=== PATIENT | female | born 1960 | race Caucasian/White ===

== ENCOUNTER → 2017-05-30 | Outpatient (CLI) | payer BC ==
[~2017-05-30] MED LIST: CHOL10005 PO; FLUT16SP19 NS; GARL10005 PO; LEVO100T95 PO; LOR5 PO; LOR5/325 PO; MAGN500C10 PO; MULT1CAP59 PO; OMEG100032 PO; SYNTHROID PO; VITA-175 PO
--- NOTE | 2017-05-30 15:13 | RADIOLOGY IMAGING REPORT ---
FACILITY: [facility] - [place] PATIENT NAME: Nilam Aguirre : 1960 MR: [id number] V: [id number] EXAM DATE: ORDERING PHYSICIAN: BILL WRIGHT TECHNOLOGIST: Location: [facility] - [place] Patient: Nilam Aguirre : 1960 Visit/Account:[id number] Date of Sevice: 05/30/2017 CHEST W/O CONTRAST History: Uterine cancer follow-up TECHNIQUE: Contiguous axial images were performed through the chest to the level of the adrenal gla nds. No IV contrast was administered. Coronal and sagittal reformatting was also performed. COMPARISON STUDIES: March 03, 2017. Lungs / Pleura: 1 cm noncalcified pulmonary nodule superior anterior right lower lobe on image 42 o f series 3 remains stable. 3 mm noncalcified subpleural nodule lateral aspect right middle lobe on image 60 also remained stable Previous 6 mm groundglass nodule inferior right middle lobe appears smaller now measuring 5 mm best s een on image 62 Previously noted 1.1 cm hypoattenuating nodule just inferior to the inferior right pulmonary vein is again seen and appears stable. Mediastinum/nodes: As above Heart and vessels: negative. Musculoskeletal / Body wall: 7 mm nodule lateral aspect of the upper right breast appear stable. P robable hemangioma in the T9 vertebral body appears stable Upper abdomen: Visualized abdominal viscera negative. IMPRESSION: Two of the three right-sided pulmonary nodules have remained stable. The 6 mm right middle lobe grou ndglass nodule slightly decreased in size now measuring 5 mm. 1.1 cm hypoattenuating nodule just inferior to the inferior right renal vein also appears stable alth ough is not ideally evaluated due to lack of intravenous contrast Report Dictated By: Richelle Mahmood MD at 05/30/2017 3:03 PM Report E-Signed By: Richelle Mahmood MD at 05/30/2017 3:10 PM WSN:[email or web address]
== END ==
LOC: CT 13:55
PROVIDERS: ATTEND Radiology Radiation Oncology
DX: N63.21 Unspecified lump in the left breast, upper outer quadrant (principal); R91.8 Other nonspecific abnormal finding of lung field
CPT/HCPCS: 71250

== ENCOUNTER → 2017-06-01 | Outpatient (CLI) | payer BC ==
--- NOTE | 2017-06-01 10:15 | RADIOLOGY IMAGING REPORT ---
FACILITY: [facility] - [place] PATIENT NAME: Nilam Aguirre : 1960 MR: [id number] V: [id number] EXAM DATE: ORDERING PHYSICIAN: BILL WRIGHT TECHNOLOGIST: Location: [facility] - [place] Patient: Nilam Aguirre : 1960 Visit/Account:[id number] Date of Sevice: 06/01/2017 ABDOMEN/PELVIS W/O CONTRAST HISTORY: Endometrial cancer TECHNIQUE: Axial images acquired through the abdomen/pelvis. Coronal and sagittal reformatting also performed. No IV contrast administered. Dose Lowering Technique One of the following dose optimization techniques was utilized in the performance of this exam: Autom ated exposure control; adjustment of the mA and/or kV according to the patient's size; or use of an i terative reconstruction technique. Specific details can be referenced in the facility's radiology C T exam operational policy. COMPARISON: March 02, 2017 FINDINGS: Visualized lung bases: The 3 mm subpleural nodule lateral aspect right middle lobe appears unchanged and is best seen on image five of series 5. The 6 mm groundglass nodule lateral inferior aspect right middle lobe also unchanged best seen on awilda ge 11. The previously noted 1.1 cm hypoattenuating nodule projecting just inferior to the right inferior pul monary vein is not completely imaged on this study. Hepatobiliary: Negative. Spleen: Negative. Adrenals: Negative. Pancreas: Negative. Kidneys ureters and bladder: Negative. Genitalia: Hysterectomy GI: There is colonic diverticulosis although no CT evidence of acute diverticulitis Vessels/spaces/nodes: Mild vascular calcifications. No pathologic-appearing adenopathy is identifie d Bones/soft tissues: No aggressive appearing bone lesions are seen Additional findings: None pertinent. IMPRESSION: The previously noted 3 mm nodule on the right middle lobe and 6 mm groundglass nodule also in the rig ht middle lobe have remained stable. The previously noted 1.1 cm nodule just inferior to the inferior right renal vein is not completely i sanjeev on this study Postsurgical changes from hysterectomy Colonic diverticulosis although no CT evidence of acute diverticulitis Report Dictated By: Richelle Mahmood MD at 06/01/2017 9:55 AM Report E-Signed By: Richelle Mahmood MD at 06/01/2017 10:10 AM WSN:[email or web address]
== END ==
LOC: CT 08:04
PROVIDERS: ATTEND Radiology Radiation Oncology
DX: Z90.79 Acquired absence of other genital organ(s) (principal); K57.30 Diverticulosis of large intestine without perforation or abscess without bleeding; R91.8 Other nonspecific abnormal finding of lung field
CPT/HCPCS: 74176

== ENCOUNTER 2017-06-20 15:16 | Outpatient (RCR) | payer BC ==
[2017-06-21] MEDS ORDERED: IBUP-56 PO (09:07)
[2017-06-21] MEDS ORDERED: LORA10CA3 PO (09:07)
== END 2017-06-23 14:14 | disposition home or self-care (01) ==
LOC: RAON 15:16
PROVIDERS: ATTEND Radiology Radiation Oncology
DX: Z85.42 Personal history of malignant neoplasm of other parts of uterus (principal); E03.9 Hypothyroidism, unspecified; Z79.899 Other long term (current) drug therapy; Z92.3 Personal history of irradiation
CPT/HCPCS: 99213

== ENCOUNTER 2018-01-17 14:59 | Outpatient (RCR) | payer BC ==
[2018-01-15 15:39] VITALS: BP 150/85
--- NOTE | 2018-01-15 17:27 | RADIOLOGY IMAGING REPORT ---
FACILITY: [facility] - [place] PATIENT NAME: Nilam Aguirre : 1960 MR: [id number] V: [id number] EXAM DATE: ORDERING PHYSICIAN: MARTIN TALAVERA TECHNOLOGIST: Location: [facility] Patient: Nilam Aguirre : 1960 Visit/Account:[id number] Date of Sevice: 01/15/2018 CHEST/AB/PELV W/OUT CONTRAST HISTORY: Endometrial cancer ADDITIONAL HISTORY: None. TECHNIQUE: Contiguous axial images acquired through the chest abdomen and pelvis without IV contrast. Coronal and sagittal reformatting was also performed.Dose Lowering Technique One of the following dose optimization techniques was utilized in the performance of this exam: Autom ated exposure control; adjustment of the mA and/or kV according to the patient's size; or use of an i terative reconstruction technique. Specific details can be referenced in the facility's radiology C T exam operational policy. COMPARISON: CT chest May 30, [address] abdomen pelvis June 01, 2017 FINDINGS: CHEST: Lungs/Pleura: 1 cm noncalcified nodule anterior aspect superior segment of the right lower lobe best seen on image 37 of series 5 remains stable 3 mm noncalcified subpleural nodule lateral aspect right middle lobe has remained stable best seen on image 201 The 5 mm groundglass nodule lateral aspect right middle lobe also remains stable best seen on image 2 09 Previously noted 1.1 cm hypoattenuating nodule just inferior to the inferior right pulmonary vein at is not well seen Mediastinum/lymph nodes: Negative. Heart/vessels: Negative. Bones/soft tissues: Probable benign hemangiomas at T4 and T9 are again seen. There is mild loss of h eight along the superior endplate of T4 that appears stable and is likely related to the Schmorl's no de ABDOMEN AND PELVIS: Hepatobiliary: Negative Spleen: Negative. Pancreas: Negative. Adrenals: Negative. Kidneys ureters and bladder : Negative. Genitalia: Hysterectomy. There is mild soft tissue fullness left-sided the pelvic cul-de-sac appeari ng similar to prior studies likely postsurgical in nature GI: There is diffuse colonic diverticulosis although no CT evidence of acute diverticulitis Vessels/spaces/nodes: Negative. Bones/soft tissues: Tiny umbilical hernia containing fat. No aggressive appearing bone lesions are seen Additional findings: None pertinent. IMPRESSION: Previously noted pulmonary nodules measuring up to 1 cm have remained stable. The 1.1 cm hypoattenua ting nodule just inferior to the inferior right pulmonary vein is not well seen Postsurgical changes from hysterectomy Diffuse colonic diverticulosis although no CT evidence of acute diverticulitis Report Dictated By: Richelle Mahmood MD at 01/15/2018 5:06 PM Report E-Signed By: Richelle Mahmood MD at 01/15/2018 5:23 PM WSN:[email or web address]
[2018-01-17 14:58] VITALS: BP 129/83
[~2018-01-17 14:59] MED LIST changes: +IBUP-56 PO; +LORA10CA3 PO
[2018-01-17] MEDS ORDERED: LEVO137T23 PO (15:01)
--- NOTE | 2018-01-19 01:05 | ONCOLOGY FOLLOW UP NOTE ---
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 She completed adjuvant brachytherapy in October 2016. She presents today and is doing well. She has noted some "charley horses," and we discussed the importance of adequate hydration. She has only been using her vaginal dilators once a week, but is not sexually active at this time. She had a RPG PROGRAMMER ANALYST exam per Dr. Pascal in August 2017 and will follow up with Dr. Pascal again in August 2018. She denies any changes in her bowels or bladder. PAST MEDICAL HISTORY 1. FIGO 1A carcinosarcoma of the uterus, August 2016. 2. Hypothyroidism. PAST SURGICAL HISTORY 1. Da Willie robotic total laparoscopic hysterectomy with bilateral salpingo- oophorectomy and pelvic lymph node dissection, August 2016. 2. , May 1980 3. Shoulder surgery, November 1997. 4. Hamstring repair, November 2013. SOCIAL HISTORY Patient is . She has one daughter. 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 She is a nonsmoker. LABORATORY STUDIES CA125 was 13. REVIEW OF SYSTEMS A 12-point review of systems was performed and is negative except as stated above. PHYSICAL EXAMINATION VITAL SIGNS: Blood pressure 129/83, pulse 68, R 16, temp 97.2, O2 saturation 94%. GENERAL: Patient is a well-developed, well-nourished female in no acute distress. HEAD: Normocephalic, atraumatic. EYES: Sclerae anicteric. MOUTH: Moist mucous membranes. NECK: Supple. No adenopathy. LUNGS: Clear bilaterally. CARDIOVASCULAR: Heart rate regular, 68 per minute, without murmur, S3, or S4. ABDOMEN: Soft, nontender, obese, with active bowel sounds. RPG PROGRAMMER ANALYST: Bimanual exam performed with nurse automatic developer: Normal external female genitalia noted. No concerning vaginal findings. EXTREMITIES: No edema. NEUROLOGIC: Nonfocal. IMPRESSION AND PLAN The patient is a 57-year-old female with FIGO 1a carcinosarcoma of the endometrium, grade 3, status post total abdominal hysterectomy/bilateral salpingo-oophorectomy and lymph node evaluation. Completed adjuvant brachytherapy in October 2016. 1. Uterine cancer. No signs or symptoms of disease recurrence. She underwent CT scan of the chest, abdomen, and pelvis on 01/15/18, which showed no evidence of recurrence. Previously noted pulmonary nodules are described as stable, 1 cm nodules. Will reevaluate again in one year. 2. Encouraged use of vaginal dilators as needed. 3. Follow up in six months for continued care, earlier if there is a problem. I reviewed this case with Dr. Leung, who agrees with this plan. [facility]
== END 2018-02-14 12:44 | disposition home or self-care (01) ==
LOC: RAON 14:59
PROVIDERS: ATTEND Radiology Radiation Oncology
DX: C55 Malignant neoplasm of uterus, part unspecified (principal); R91.8 Other nonspecific abnormal finding of lung field; K57.30 Diverticulosis of large intestine without perforation or abscess without bleeding; Z90.710 Acquired absence of both cervix and uterus
CPT/HCPCS: 36415; 71250; 74176; 86304

== ENCOUNTER → 2018-07-30 | Outpatient (CLI) | payer BC ==
[~2018-07-30] MED LIST changes: +LEVO137T23 PO
--- NOTE | 2018-07-31 14:51 | RADIOLOGY IMAGING REPORT ---
FACILITY: [facility] - [place] PATIENT NAME: Nilam Aguirre : 1960 MR: [id number] V: [id number] EXAM DATE: ORDERING PHYSICIAN: MARTIN TALAVERA TECHNOLOGIST: Location: [facility] Patient: Nilam Aguirre : 1960 Visit/Account:[id number] Date of Sevice: 07/31/2018 CHEST/AB/PELV W/OUT CONTRAST HISTORY: History of uterine cancer, two year follow-up ADDITIONAL HISTORY: None. TECHNIQUE: Contiguous axial images acquired through the chest abdomen and pelvis without IV contrast. Coronal and sagittal reformatting was also performed.Dose Lowering Technique One of the following dose optimization techniques was utilized in the performance of this exam: Autom ated exposure control; adjustment of the mA and/or kV according to the patient's size; or use of an i terative reconstruction technique. Specific details can be referenced in the facility's radiology C T exam operational policy. COMPARISON: January 15, 2018 FINDINGS: CHEST: Lungs/Pleura: Previously noted 1 cm noncalcified nodule anterior aspect of the superior segment of t he right lower lobe appears unchanged and is best seen on image 141 of series 6 3 mm noncalcified nodule lateral aspect of the right middle lobe also appears unchanged and is best s een on image 202 5 mm groundglass nodule lateral aspect right middle lobe also remains stable and is best seen on imag e 210. No new pulmonary nodules are identified. Previously noted 1.1 cm nodule just inferior to the inferior right pulmonary vein appears less promin ent Mediastinum/lymph nodes: Negative. Heart/vessels: Negative. Bones/soft tissues: Probable hemangiomas at T4 and T9 appear relatively unchanged ABDOMEN AND PELVIS: Hepatobiliary: Negative. Spleen: Negative. Pancreas: Negative. Adrenals: Negative. Kidneys ureters and bladder : Negative. Genitalia: Postsurgical changes from hysterectomy. There is mild soft tissue fullness along the left -sided the pelvic cul-de-sac appearing similar to the prior study GI: There is a diffuse colonic diverticulosis although no CT evidence of acute diverticulitis Vessels/spaces/nodes: There Is a tiny umbilical hernia containing fat. No aggressive appearing bone lesions are seen Bones/soft tissues: Negative. Additional findings: None pertinent. IMPRESSION: Previously noted pulmonary nodules have remained stable Postsurgical changes from hysterectomy. There is mild soft tissue fullness along the left-sided the pelvic cul-de-sac which has remained similar to the prior study dating back to March 02, 2017 Diffuse colonic diverticulosis Report Dictated By: Richelle Mahmood MD at 07/31/2018 2:15 PM Report E-Signed By: Richelle Mahmood MD at 07/31/2018 2:46 PM WSN:[email or web address]
== END ==
LOC: CT 15:34
PROVIDERS: ATTEND Radiology Radiation Oncology
DX: C55 Malignant neoplasm of uterus, part unspecified (principal)
CPT/HCPCS: 71250; 74176

== ENCOUNTER 2018-07-31 14:45 | Outpatient (RCR) | payer BC ==
[2018-07-31 15:01] VITALS: BP 130/87
--- NOTE | 2018-08-01 02:59 | ONCOLOGY FOLLOW UP NOTE ---
EVENT DATE: July 31, 2018 CHIEF COMPLAINT/REASON FOR VISIT Patient has a history of carcinosarcoma of the endometrium, grade 3. Prior CHUY/BSO and adjuvant brachytherapy. Patient is here to go over updated imaging, including CT of the chest, abdomen and pelvis. We are monitoring several pulmonary nodules listed below. HISTORY OF PRESENT ILLNESS 1. Diagnosis of carcinosarcoma, 08/30/16. Patient underwent robotic laparoscopic CHUY/BSO under the direction of HOUSEKEEPING STAFF oncologist Dr. Eddie Méndez in [place]. Pathology demonstrated a poorly differentiated uterine tumor, consistent with carcinosarcoma. No LVI. Tumor size measured 3.8 cm. Two para-aortic lymph nodes and four pelvic lymph nodes were identified, which were negative for malignancy. 2. Patient received postoperative adjuvant vaginal cuff brachytherapy, completed in [place] at [facility] in October 2016. 3. Patient is undergoing cancer surveillance. She has two enlarged pulmonary nodules over 1 cm, which are being followed. 4. Updated CT scan of the chest, abdomen and pelvis was reviewed with the patient today in the office. Study was obtained within the last 24 hours. Unfortunately, the two pulmonary nodules are stable, with no interval increase in size over the last six months. One nodule is in the superior segment of the right lower lobe, which is unchanged in size. A second 1.1 cm nodule is inferior to the right pulmonary vein and is less prominent. The 3 mm and 5 mm small nodules in the right middle lobe are stable. No signs of hepatic metastasis. Hemangiomas are noted in T4 and T9, which are stable. No signs of para-aortic lymphadenopathy. No evidence of tumor recurrence in the pelvis. Patient is undergoing regular pelvic examinations with Dr. Imani Pascal locally. She is undergoing regular followup at the cancer center per schedule. Recent laboratory studies which included a CA125 marker are stable, with result of 13 (normal 0-35). PAST MEDICAL HISTORY 1. Diagnosis of carcinosarcoma, malignant mixed malarian tumor, 08/30/16. 2. Hypothyroidism. PAST SURGICAL HISTORY 1. Da Willie robotic CHUY/BSO and pelvic lymph node dissection, 08/30/16, in [place]. 2. , May 1980. 3. Hamstring surgery, November 2013. 4. Prior benign breast biopsy. 5. Previous shoulder surgery and tendon repair, November 1997. ALLERGIES 1. Intolerance to foods such as DAIRY, EGGS, and SEAFOOD. 2. Medication intolerance to NAPROXEN. MEDICATIONS 1. Levothyroxine 137 mcg daily. 2. Claritin 10 mg a day. 3. [place]-3 capsule daily. 4. MVI daily. 5. Magnesium 500 mg daily. 6. Garlic 1000 mg capsule daily. 7. Vitamin D3 1000 units daily. 8. B-complex vitamin daily. FAMILY HISTORY Notable for brother who had brain tumor, what sounded like a GBM, in his mid- 40s. He lived to approximately 63. 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 REVIEW OF SYSTEMS Comprehensive review of systems entirely negative. PHYSICAL EXAMINATION GENERAL: A pleasant 57-year-old female of medium build. VITAL SIGNS: Weight 190, BP 130/87, pulse 74, respirations 16. LUNGS: Clear bilaterally. No peripheral lymphadenopathy. ABDOMEN: Soft. No gross organomegaly, mass or tenderness. EXTREMITIES: No significant edema. PELVIC: Exam is deferred, since this is being performed by other providers. IMPRESSION No evidence of cancer recurrence by radiographic studies which were reviewed today. PLAN I reviewed the present NCCN guidelines regarding surveillance for uterine sarcomas. Their recommendation is to continue radiographic studies every six months until she reaches the three-year interval, and then annually, potentially, until she reaches the five-year interval. I think this is especially important since we are following two pulmonary nodules in this lady. All questions were answered to her satisfaction over a 40-minute followup appointment. She will continue regular followup visits with Dr. Imani Pascal per schedule. [facility] NETWORKHeather
== END 2018-08-20 15:44 | disposition home or self-care (01) ==
LOC: RAON 14:45
PROVIDERS: ATTEND Radiology Radiation Oncology
DX: Z85.42 Personal history of malignant neoplasm of other parts of uterus (principal); Z92.3 Personal history of irradiation; E03.9 Hypothyroidism, unspecified; Z79.899 Other long term (current) drug therapy
CPT/HCPCS: 99212

== ENCOUNTER 2018-11-01 00:36 | Day surgery (SDC) | payer BC ==
[~2018-11-01] VITALS: Ht 157.5 cm; Wt 77.6 kg
[~2018-11-01 00:36] MED LIST changes: +CURCUMIN PO
[2018-11-01 06:19] VITALS: BP 118/71
[2018-11-01] MEDS ORDERED: LIDOCAINE/SOD BICARB 8.4% SYR ID ONE (06:45)
[2018-11-01] MEDS ORDERED: NORMOSOL R SOLN(*) 1000 ML BAG 1,000 ML IV PRN (06:45)
[2018-11-01] MEDS ORDERED: PROPOFOL EMUL(*) 10MG/ML 20 ML 40 ML ONE (07:54)
[2018-11-01] MEDS ORDERED: LIDOCAINE MPF 1% 5 ML VIAL ONE (07:54)
[2018-11-01 08:04] VITALS: BP 116/72
--- NOTE | 2018-11-01 08:10 | NUR ---
Patient resting comfortably. requests some water.
[2018-11-01 08:11] VITALS: BP 120/68
--- NOTE | 2018-11-01 08:20 | NUR ---
patient supplemental oxygen removed. patient tolerating well. O2 sats at 95% on RA, pusle 60 bpm, 16 respirations. will continue to monitor.
[2018-11-01 08:45] VITALS: BP 127/73
[2018-11-01 08:48] VITALS: BP 135/79
--- NOTE | 2018-11-01 08:48 | NUR ---
Orthostatic vitals complete. patient tolerated well. see vitals for report.
--- NOTE | 2018-11-01 08:50 | NUR ---
Patient up to bathroom. able to void bladder. patient has steady gate and able to ambulate without assistance.
[2018-11-01 08:58] VITALS: BP 136/82
--- NOTE | 2018-11-01 09:08 | NUR ---
Patient walked out.
== END 2018-11-01 09:05 | disposition home or self-care (01) ==
LOC: OR 00:36
PROVIDERS: ATTEND Family Medicine
DX: Z12.11 Encounter for screening for malignant neoplasm of colon (principal); K63.5 Polyp of colon; K57.30 Diverticulosis of large intestine without perforation or abscess without bleeding
CPT/HCPCS: 00811; 45380; 88305; J2001; J2704